=== PATIENT | male | born 1995 | race Asian ===

== ENCOUNTER 2018-04-14 11:46 | Emergency (ER) | payer OTHER ==
[~2018-04-14] VITALS: Ht 182.9 cm; Wt 81.7 kg
[2018-04-14 12:09] LABS: URINE BILIRUBIN NEGATIVE (Negative); URINE BLOOD 3+ (Negative); URINE CLARITY CLOUDY; URINE COLOR YELLOW; URINE GLUCOSE-RANDOM NEGATIVE (Negative); URINE KETONES NEGATIVE (Negative); URINE LEUKOCYTES-REFLEX NEGATIVE (Negative); URINE NITRITE-REFLEX NEGATIVE (Negative); URINE PROTEIN TRACE (Negative); URINE SPECIFIC GRAVITY >= 1.030 (1.005-1.030); URINE UROBILINOGEN 0.2 E.U./dl (0.2-1.0)
[2018-04-14 12:19] LABS: ABSOLUTE BASOPHILS 0.1 thou/uL (0.0-0.2); ABSOLUTE EOSINOPHILS 0.4 thou/uL (0.0-0.7); ABSOLUTE LYMPHOCYTES 2.6 thou/uL (0.8-5.3); ABSOLUTE MONOCYTES 0.6 thou/uL (0.0-1.2); ABSOLUTE NEUTROPHILS 3.6 thou/uL (1.6-8.1); BASOPHILS 0.9 %; EOSINOPHILS 5.4 %; HEMATOCRIT 47.9 % (42.0-52.0); MCH 30.3 pg (26.0-34.0); MCHC 33.4 g/dL (28.0-37.0); MCV 90.9 fL (80.0-100.0); MPV 8.7 fl. (7.2-11.1); NUCLEATED RBCS 0 /100WBC; PLATELET COUNT* 247 thou/uL (150-400); POLYS 49.7 %; RBC 5.27 mil/uL (4.50-6.00); RDW-CV 13.6 % (10.5-14.5); WBC 7.1 thou/uL (4.0-11.0)
[2018-04-14 12:19] LABS: SQUAMOUS 0-3 Few /LPF (0-3)
[2018-04-14 12:20] LABS: BACTERIA-REFLEX 1-9 Few /HPF (None Seen); CALCIUM OXALATE 0-3 Few /LPF (None Seen); CASTS None Seen /LPF (None Seen); MUCUS None Seen strn/LPF (None Seen); URINE RBC >20 Many /HPF (0-2); URINE WBC-REFLEX 0-5 Rare /HPF (0-5)
[2018-04-14 12:21] LABS: CRYSTALS None Seen /LPF (None Seen); YEAST-REFLEX Present (None Seen)
[2018-04-14 12:29] LABS: POTASSIUM 3.6 mmol/L (3.5-5.1)
[2018-04-14 12:34] LABS: ALBUMIN 3.8 g/dL (3.4-5.0); TOTAL BILIRUBIN 0.4 mg/dL (<0.1-1.0); TOTAL PROTEIN 7.1 g/dL (6.4-8.2)
[2018-04-14] MEDS ORDERED: NORCO 5-325 TA1 EACH PO (13:25)
[2018-04-14] MEDS ORDERED: ONDANSETRON HCL4 M2 PO (13:25)
[2018-04-14] MEDS ORDERED: FLOMAX0.4 MG PO ×2 (13:36→13:37)
[2018-04-14 13:43] VITALS: BP 107/64
== END 2018-04-14 13:45 | disposition home or self-care (01) ==
LOC: M.ERS 11:46
PROVIDERS: Physician Assistant
DX: N20.0 Calculus of kidney (principal); Z91.010 Allergy to peanuts

== ENCOUNTER 2018-05-19 14:06 | Emergency (ER) | payer OTHER ==
[~2018-05-19] VITALS: Ht 182.9 cm; Wt 81.7 kg
[~2018-05-19 14:06] MED LIST: FLOMAX0.4 MG PO; NORCO 5-325 TA1 EACH PO; ONDANSETRON HCL4 M2 PO
[2018-05-19 14:38] LABS: ABSOLUTE EOSINOPHILS 0.1 thou/uL (0.0-0.7); ABSOLUTE LYMPHOCYTES 1.1 thou/uL (0.8-5.3); ABSOLUTE MONOCYTES 0.7 thou/uL (0.0-1.2); BASOPHILS 0.4 %; HEMATOCRIT 44.7 % (42.0-52.0); HEMOGLOBIN 15.1 gm/dL (14.0-18.0); MCH 30.6 pg (26.0-34.0); MCHC 33.8 g/dL (28.0-37.0); MCV 90.6 fL (80.0-100.0); MONOCYTES 6.6 %; MPV 8.8 fl. (7.2-11.1); NUCLEATED RBCS 0 /100WBC; PLATELET COUNT* 231 thou/uL (150-400); RBC 4.93 mil/uL (4.50-6.00); RDW-CV 13.5 % (10.5-14.5); WBC 9.9 thou/uL (4.0-11.0)
[2018-05-19 14:50] LABS: URINE BILIRUBIN NEGATIVE (Negative); URINE BLOOD 3+ (Negative); URINE CLARITY CLEAR; URINE COLOR YELLOW; URINE GLUCOSE-RANDOM NEGATIVE (Negative); URINE KETONES NEGATIVE (Negative); URINE LEUKOCYTES-REFLEX NEGATIVE (Negative); URINE NITRITE-REFLEX NEGATIVE (Negative); URINE PROTEIN NEGATIVE (Negative); URINE SPECIFIC GRAVITY >= 1.030 (1.005-1.030); URINE UROBILINOGEN 0.2 E.U./dl (0.2-1.0)
[2018-05-19 14:53] LABS: CALCIUM 9.1 mg/dL (8.5-10.1); CREATININE 1.2 mg/dL (0.6-1.3); POTASSIUM 3.9 mmol/L (3.5-5.1)
[2018-05-19 14:58] LABS: TOTAL BILIRUBIN 0.4 mg/dL (<0.1-1.0); TOTAL PROTEIN 7.4 g/dL (6.4-8.2)
[2018-05-19 15:23] LABS: SQUAMOUS 0-3 Few /LPF (0-3)
[2018-05-19 15:24] LABS: URINE RBC 3-10 Few /HPF (0-2); URINE WBC-REFLEX 0-5 Rare /HPF (0-5)
[2018-05-19 15:25] LABS: BACTERIA-REFLEX 1-9 Few /HPF (None Seen); CASTS None Seen /LPF (None Seen); CRYSTALS None Seen /LPF (None Seen); MUCUS 0-3 Light strn/LPF (None Seen)
[2018-05-19] MEDS ORDERED: NORCO 5-325 TA1 EACH PO (15:43)
[2018-05-19 16:06] VITALS: BP 146/50
== END 2018-05-19 16:07 | disposition home or self-care (01) ==
LOC: M.ERS 14:06
PROVIDERS: Nurse Practitioner Family
DX: N20.1 Calculus of ureter (principal); Z91.010 Allergy to peanuts